=== PATIENT | male | born 1980 | race Two or more races ===

== ENCOUNTER 2019-07-13 09:51 | Emergency (ER) | payer OTHER ==
[~2019-07-13] VITALS: Ht 188 cm; Wt 102.1 kg
[2019-07-13] MEDS ORDERED: ZYRTEC10 MG PO (10:52)
[2019-07-13] MEDS ORDERED: PREVACID15 MG PO (10:53)
== END 2019-07-13 13:55 | disposition home or self-care (01) ==
LOC: ER 09:51
DX: B34.9 Viral infection, unspecified (principal)

== ENCOUNTER 2023-11-03 11:58 | Emergency (ER) | payer OTHER ==
[~2023-11-03] VITALS: Ht 167.6 cm; Wt 86.2 kg
[~2023-11-03 11:58] MED LIST: PREVACID15 MG PO; ZYRTEC10 MG PO
[2023-11-03] MEDS ORDERED: BREO ELLIPTA 21 EACH IH (12:11)
[2023-11-03 12:38] LABS: HEMATOCRIT 45.9 % (39.0-48.0); MEAN CELL VOLUME 88.7 fL (80.0-100.00); MEAN CORPUSCULAR HGB CONC 34.9 g/dl (32.0-36.0); PLATELET COUNT 304 K/uL (150-450); RED BLOOD COUNT 5.17 M/uL (4.00-6.00); RED CELL DISTRIBUTION WIDTH 13.8 % (11.5-14.5)
[2023-11-03 13:07] LABS: ALBUMIN 4.2 gm/dL (3.4-5.0); BILIRUBIN TOTAL 0.52 mg/dL (0.3-1.2); CALCIUM 9.8 mg/dL (8.5-10.1); CREATININE SERUM 1.13 mg/dL (0.70-1.30); GFR 71.16; GLOBULINA 3.5 G/DL (2.4-3.5); POTASSIUM 4.02 mEq/L (3.5-5.1); TOTAL PROTEIN 7.7 gm/dL (6.4-8.2)
== END 2023-11-03 13:45 | disposition home or self-care (01) ==
LOC: ER 11:58
PROVIDERS: General Practice
DX: R06.02 Shortness of breath (principal); Z91.018 Allergy to other foods; Z20.822 Contact with and (suspected) exposure to COVID-19